=== PATIENT | male | born 1965 | race Caucasian/White ===

== ENCOUNTER 2016-11-29 15:24 | Emergency (ER) | payer SELFPAY ==
[~2016-11-29] VITALS: Ht 162.6 cm; Wt 60.0 kg
[~2016-11-29 15:24] MED LIST: CEPH500T PO; LISI-360 PO; LORTA5; SULF1TAB47 PO; TRAM50TA PO
[2016-11-29 15:25] VITALS: BP 165/103; PULSE 100; RESP 20; TEMP 97.8; O2SAT 97
--- NOTE | 2016-11-29 15:48 | PD ---
Physical Exam Date Seen by Provider: Nov 29, 2016 Time Seen by Provider: 15:46 Narrative 51 y/o male here with Laceration to right anterior leg from a fall from trailor. No other injury. Patient refuses tetanus. Pain 02/16. Bleeding controlled. V/S Stable Waiting bed placement. Data Data Last Documented VS Vital Signs Date Time Temp Pulse Resp B/P Pulse Ox O2 Delivery O2 Flow Rate FiO2 11/29/16 15:25 97.8 100 20 165/103 97 Room Air [facility] Medical Record Reviewed: Yes Supervised Visit with JESÚS: Yes Condition: Stable Caesar Mccoy Nov 29, 2016 15:48
[2016-11-29] MEDS ORDERED: IBUP800T23 PO (16:11)
[2016-11-29] MEDS ORDERED: CEPH-460 PO (16:11)
--- NOTE | 2016-11-29 16:12 | PD ---
HPI Chief Complaint: Laceration/Skin Injury Time Seen by Provider: 16:09 Travel History International Travel<30 days: No Contact w/Intl Traveler<30days: No Traveled to known affect area: No History of Present Illness HPI 51-year-old male presents emergency Department with complaint of a laceration to his right lower leg from hitting it on a trailer today. He is up-to-date on his tetanus vaccination. Denies paresthesias, loss of sensation, decreased range of motion, decreased strength to affected extremity. Has not taken any medications or tried any treatments to relieve the symptoms. Has applied pressure and a bandage to control bleeding. Denies fever, chills, nausea, vomiting. No known allergies. No other modifying factors or associated signs and symptoms. PFSH Past Medical History Hypertension: Yes Inguinal Hernia: Yes (RT GROIN) Tetanus Vaccination: < 5 Years Past Surgical History Abdominal Surgery: Yes (RIGHT GROIN HERNIA REPAIR) Social History Alcohol Use: Yes (OCCAS. BEER) Tobacco Use: Yes (1 PPD) Substance Use: No Allergies-Medications (Allergen,Severity, Reaction): Coded Allergies: No Known Allergies (Unverified , 11/29/16) Reported Meds & Prescriptions Reported Meds & Active Scripts Active Ibuprofen 800 Mg Tab 800 Mg PO Q6HR PRN Keflex (Cephalexin) 500 Mg Cap 500 Mg PO Q8H 7 Days Review of Systems Except as stated in HPI: all other systems reviewed are Neg Physical Exam Narrative GENERAL: Well-nourished, well-developed male patient, in no acute distress SKIN: Warm and dry. Laceration to medial aspect of right pena approximately 5 cm; without erythema, edema; with minimal amount bright red drainage. Right lower extremity supple and non-tense with 2+ pedal pulse and sensory intact without erythema or edema. HEAD: Atraumatic. Normocephalic. EYES: Pupils equal and round. No scleral icterus. No injection or drainage. ENT: Mucosa pink and moist. Airway patent. NECK: Trachea midline. CARDIOVASCULAR: Regular rate. RESPIRATORY: No accessory muscle use. GASTROINTESTINAL: Flat. MUSCULOSKELETAL: No obvious deformities. No clubbing. No cyanosis. No edema. NEUROLOGICAL: Awake and alert. Oriented 3. No obvious cranial nerve deficits. Motor grossly within normal limits. Normal speech. PSYCHIATRIC: Appropriate mood and affect; insight and judgment normal. Data Data Last Documented VS Vital Signs Date Time Temp Pulse Resp B/P Pulse Ox O2 Delivery O2 Flow Rate FiO2 11/29/16 15:25 97.8 100 20 165/103 97 Room Air Orders Lidocai-Epi 1%-1:100,000 Inj (Xylocaine- (11/29/16 16:15) MDM Medical Decision Making Medical Screen Exam Complete: Yes Emergency Medical Condition: Yes Medical Record Reviewed: Yes Differential Diagnosis Laceration, contusion, abrasion Narrative Course 51-year-old male with right lower leg laceration. See my procedure note for laceration repair. Tetanus is up-to-date. Keflex and ibuprofen prescribed for home. Patient verbalizes understanding and agreement with treatment plan. Patient is medically cleared and stable for discharge. Discussed reasons to return to the emergency department. Instructed patient to follow up with primary care provider. Patient agrees with treatment plan. The patients vital signs are stable and the patient is stable for outpatient follow-up and treatment. Patient discharged home, stable and in no acute distress. Procedures Procedure Narrative LACERATION LOCATION: Right lower leg; medial pena LENGTH: 5 cm NUMBER OF STITCHES/KAY: 10 stable REPAIR: The area of the laceration was prepped with Betadine and sterilely draped. The laceration was infiltrated with 1% lidocaine with epinephrine. The wound was copiously irrigated and explored without evidence of foreign body, tendon injury or neurovascular injury. The wound was closed using kay. This was a single layer repair. A sterile dressing was applied. The patient was advised to keep the dressing clean and dry. Patient tolerated the procedure well. Diagnosis Primary Impression: Laceration of right lower leg Qualified Code: S81.811A - Laceration of right lower leg, initial encounter Referrals: Primary Care Physician Patient Instructions: Acute Wound Care (ED), General Instructions, Staple Care (ED) Departure Forms: Tests/Procedures, Work Release Enter return to work date: Dec 03, 2016 Additional Instructions: Keep area clean and dry Limit right leg activity to decrease risk of stable coming undone Ibuprofen or Tylenol as directed and as needed for pain and inflammation Ice pack to area as needed to decrease pain Return to the emergency department or follow-up with her primary care provider in 14-28 days for staple removal Follow up with primary care provider Return to the emergency department immediately with worsening of symptoms, particularly if reddened streaks up or down the affected extremity from the suture site, fever, numbness/tingling in the affected extremity, loss of sensation in the affected extremity, severe swelling of the affected Med/Other Pt SpecificInfo: Prescription(s) given Scripts Ibuprofen 800 Mg [id number] Mg PO Q6HR PRN (PAIN) #30 TAB Ref 0 Prov:Pastora Bowles 11/29/16 Cephalexin (Keflex)500 Mg [id number] Mg PO Q8H 7 Days Ref 0 Prov:Pastora Bowles 11/29/16 Disposition: 01 DISCHARGE HOME Condition: Stable Pastora Bowles Nov 29, 2016 16:12
[2016-11-29] MEDS ORDERED: LIDOCAINE 1%/EPINEPHrine 1:100,000 SOLN 20 ML VIAL INFIL ONE (16:15)
== END 2016-11-29 16:59 | disposition home or self-care (01) ==
LOC: NEPK 15:24
DX: S81.811A Laceration without foreign body, right lower leg, initial encounter (principal); I10 Essential (primary) hypertension; F17.210 Nicotine dependence, cigarettes, uncomplicated; W22.8XXA Striking against or struck by other objects, initial encounter; Y93.9 Activity, unspecified; Y92.9 Unspecified place or not applicable; Y99.9 Unspecified external cause status
CPT/HCPCS: 12002